=== PATIENT | male | born 1995 | race Caucasian/White ===

== ENCOUNTER 2020-03-28 17:01 | Emergency (ER) | payer SELFPAY ==
--- NOTE | 2020-03-28 17:58 | RAD ---
THREE VIEWS OF THE RIGHT ANKLE: 03/28/20 INDICATIONS: Right ankle injury last night; twisting type injury to the right ankle; concern for fracture. COMPARISON: None. FINDINGS: There is circumferential soft tissue swelling of the right ankle but most prominent laterally. No acu te fracture is evident. Ankle mortise and talar dome are preserved. The visualized hindfoot appears w ithin normal limits. IMPRESSION: No acute osseous abnormality. POS: BH
== END 2020-03-28 18:18 | disposition home or self-care (01) ==
LOC: MADERS 17:01
DX: S93.401A Sprain of unspecified ligament of right ankle, initial encounter (principal); F17.210 Nicotine dependence, cigarettes, uncomplicated; J45.909 Unspecified asthma, uncomplicated; X50.1XXA Overexertion from prolonged static or awkward postures, initial encounter

== ENCOUNTER 2020-05-04 12:04 | Emergency (ER) | payer SELFPAY ==
--- NOTE | 2020-05-04 12:35 | RAD ---
EXAM: 2 views of the left clavicle HISTORY: Clavicle pain COMPARISON: None FINDINGS: There is a fracture the midportion of the left clavicle which is moderately displaced. Ther e is slight upward tenting on the supraclavicular skin. Mild soft tissue swelling is seen. The visualized upper thorax is unremarkable. IMPRESSION: Left mid clavicular fracture
[2020-05-04] MEDS ORDERED: HYDROcodone/Acetaminophen 5/325 mg Tablet ONE (12:51)
[2020-05-04] MEDS ORDERED: Ibuprofen 800 MG TAB ONE (12:51)
--- NOTE | 2020-05-04 12:59 | RAD ---
LEFT SHOULDER RADIOGRAPHS 2 VIEWS: Date: 05/04/2020 PROVIDED CLINICAL HISTORY: Pain status post injury. FINDINGS: Comminuted, displaced left clavicular fracture. No additional fracture is evident. The glenohumeral r elationship appears normal. The visualized left lung field appears clear. IMPRESSION: Left clavicular fracture. POS: JULIOCESAR
== END 2020-05-04 13:16 | disposition home or self-care (01) ==
LOC: MADERS 12:04
DX: S42.022A Displaced fracture of shaft of left clavicle, initial encounter for closed fracture (principal); J45.909 Unspecified asthma, uncomplicated; F17.210 Nicotine dependence, cigarettes, uncomplicated; W18.30XA Fall on same level, unspecified, initial encounter
CPT/HCPCS: 23500

== ENCOUNTER 2023-07-01 12:30 | Emergency (ER) | payer SELFPAY ==
[2023-07-01] MEDS ORDERED: Dexamethasone 4 MG TAB ONE (13:00)
[2023-07-01] MEDS ORDERED: Dexamethasone 10 MG/ML VIAL ONE (13:03)
== END 2023-07-01 13:15 | disposition home or self-care (01) ==
LOC: MADERS 12:30
DX: J06.9 Acute upper respiratory infection, unspecified (principal)
CPT/HCPCS: 87081; 87430; 99283; J1100; J8540

== ENCOUNTER 2024-08-08 12:48 | Emergency (ER) | payer OTHER ==
[2024-08-09 15:06] LABS: SARS-CoV-2 N1 Negative; SARS-CoV-2 N2 Negative; SARS-CoV-2 RNAse P1 Positive; SARS-CoV-2 RNAse P2 Positive
== END 2024-08-08 14:25 | disposition home or self-care (01) ==
LOC: MADERS 12:48
DX: J06.9 Acute upper respiratory infection, unspecified (principal); R03.0 Elevated blood-pressure reading, without diagnosis of hypertension
CPT/HCPCS: 87635; 87804; 99283